=== PATIENT | male | born 1985 | race Caucasian/White ===

== ENCOUNTER 2021-11-09 01:40 | Day surgery (SDC) | payer BC, SELFPAY ==
[2021-10-22 13:21] VITALS: BMI 33.0
--- NOTE | 2021-11-08 14:22 | PM.HPGS ---
History of Present Illness History of Present Illness Consent: Risks, benefits, and alternatives have been discussed and questions answered. Patient agrees to proceed with procedure. Chief complaint: family hx colon ca, ulcerative colitis Narrative: Luc Bernabe is a 36 year old male who was diagnosed with ulcerative colitis about a year ago. He has been on mesalamine 800 mg 3 times a day. He has a flare up every couple of months with loose stools and abdominal discomfort. He admits that he does not always take his medication 3 times a day. Also, his mother developed colon cancer when she was in her 40s. Review of Systems Review of Systems: All systems reviewed & are unremarkable except as noted in HPI and below PMFSH Past Medical History Medical History Family hx of colon cancer GERD (gastroesophageal reflux disease) Obese Ulcerative colitis Social History Social History Smoking status: Never smoker Alcohol intake: current Drinks per week: 12 Substance use: never Substance use type: does not use Living arrangements: with family Spiritual care concerns: No Meds Home Medications and Allergies Home Medications Medication Instructions Recorded Confirmed Type mesalamine 400 mg capsule (with 800 mg PO BID 1 month #120 ea 08/06/21 10/22/21 Rx delayed release tablets inside) zolpidem 10 mg tablet 10 mg PO QHS PRN 08/06/21 08/06/21 History sodium sul 1.479 gram-potas ch See Rx Instructions PO PER PKG DIR 10/18/21 Rx 0.188 gram-magnes sul 0.225 gram #24 tabs tablet (Sutab) rosuvastatin 40 mg tablet 40 mg PO DAILY 10/22/21 10/22/21 History Allergies Allergy/AdvReac Type Severity Reaction Status Date / Time No Known Allergies Allergy Verified 11/09/21 10:36 Exam Resp: Auscultation: clear to auscultation bilaterally Cardio: Rate: regular rate Rhythm: regular rhythm GI: GI Palp: Yes Soft to palpation and No Tenderness to palpation present (GI) Assessment and Plan Assessment and plan (1) Ulcerative colitis: Code(s): K51.90 - Ulcerative colitis, unspecified, without complications Status: Acute Assessment and Plan: Colonoscopy with possible biopsy or polypectomy or cautery or injection of substances.
[2021-11-09 10:36] VITALS: BP 110/73; PULSE 84; RESP 16; TEMP 36.3; O2SAT 98; BMI 32.1
[2021-11-09] MEDS: LACTATED RINGERS 1,000 ML 150 ML IV CONT (10:46)
--- NOTE | 2021-11-09 10:53 | P.PNAN_ITS ---
Anes - Initial Pre Proc Eval Procedure: Operation Date: 11/09/21 11:30 Proposed Procedures p Colonoscopy - Michael Billingsley MD Date/Time: 11/09/21 10:53 Surgeon: Michael Billingsley MD Pre Op Diagnosis: family hx colon ca, ulcerative colitis Patient Data Age: 36 Gender: M Height: 1.78 m Weight: 101.6 kg Last Vital Signs Temp 97.4 F L 11/09/21 10:36 Pulse 84 11/09/21 10:36 Resp 16 11/09/21 10:36 BP 110/73 11/09/21 10:36 Pulse Ox 98 11/09/21 10:36 O2 Del Method Room Air 11/09/21 10:36 Allergies Allergy/AdvReac Type Severity Reaction Status Date / Time No Known Allergies Allergy Verified 11/09/21 10:36 Home Medications Medication Instructions Recorded Confirmed Type mesalamine 400 mg capsule (with 800 mg PO BID 1 month #120 ea 08/06/21 10/22/21 Rx delayed release tablets inside) zolpidem 10 mg tablet 10 mg PO QHS PRN 08/06/21 08/06/21 History sodium sul 1.479 gram-potas ch See Rx Instructions PO PER PKG DIR 10/18/21 Rx 0.188 gram-magnes sul 0.225 gram #24 tabs tablet (Sutab) rosuvastatin 40 mg tablet 40 mg PO DAILY 10/22/21 10/22/21 History Patient hx anesthesia problems: none Family hx anesthesia problems: none Results Review: All pre-operative results and documents have been reviewed as part of the pre- operative evaluation. [facility] Past Medical History Medical History Family hx of colon cancer GERD (gastroesophageal reflux disease) Obese Ulcerative colitis Social History Social History Smoking status: Never smoker Alcohol intake: current Drinks per week: 12 Substance use: never Substance use type: does not use Living arrangements: with family Spiritual care concerns: No Anes - Eval Final PreProcedure Day of Procedure 11/09/21 10:53 Patient weight: obese Heart: regular rate and rhythm Lungs: clear to auscultation Airway: Mallampati scale class II Neurological: alert and oriented Last oral intake: >/= 8 hours ASA classification: II Emergent: no Anesthetic plan: proceed Anesthesia type and monitoring: general GIVS and standard monitoring Results Review: All pre-operative results and documents have been reviewed as part of the pre- operative evaluation. Informed Consent: The patient's anesthetic plan and its attendant risks and benefits were discussed with the patient/family/POA. Questions were solicited and answers provided to the satisfaction of the patient/family/POA.
[2021-11-09] MEDS: SIMETHICONE ORAL SUSPENSION 20 MG/0.3 ML 30 ML BOTTLE 0.6 ML IRRIGATION (11:27)
[2021-11-09 11:30] VITALS: BP 129/80; PULSE 98; RESP 18; O2SAT 96
[2021-11-09 11:40] VITALS: BP 115/83; PULSE 80; RESP 17; O2SAT 99
[2021-11-09 11:50] VITALS: BP 119/85; PULSE 63; RESP 17; O2SAT 99
== END 2021-11-09 11:59 | disposition home or self-care (01) ==
PROVIDERS: PCP Family Medicine; Visit Provider Internal Medicine Gastroenterology
PROC: 0DJD8ZZ Inspection of Lower Intestinal Tract, Via Natural or Artificial Opening Endoscopic (ICD-10-PCS; CPT 45378; principal; 2021-11-09 11:30)
DX: Z09 Encounter for follow-up examination after completed treatment for conditions other than malignant neoplasm (principal); K57.30 Diverticulosis of large intestine without perforation or abscess without bleeding; K21.9 Gastro-esophageal reflux disease without esophagitis; E66.9 Obesity, unspecified; Z68.32 Body mass index [BMI] 32.0-32.9, adult
CPT/HCPCS: 45380; 88305; J2704; J7120